=== PATIENT | female | born 1930 | race Caucasian/White ===

== ENCOUNTER 2017-03-22 09:48 | Inpatient (IN) | payer MEDICARE, OTHER ==
[2017-03-22] VITALS (7 sets, daily range): BP systolic 106–133; BP diastolic 56–67; PULSE 72–90; RESP 16–18; TEMP 96.3–98.7; O2SAT 95–99
[~2017-03-22] VITALS: Ht 157.5 cm; Wt 75.0 kg
[~2017-03-22 09:48] MED LIST: ARIC5TAB PO; ATOR20TA42 PO; HYZA50TA2 PO; NITR-29 PO; PROT40TA PO
[2017-03-22] MEDS ORDERED: LOSA50TA2 PO (10:02)
[2017-03-22] MEDS ORDERED: DONE5TAB7 PO (10:02)
[2017-03-22] MEDS ORDERED: PREVAGEN PO (10:02)
[2017-03-22] MEDS ORDERED: NITR1CAP36 PO (10:02)
[2017-03-22] MEDS ORDERED: PANT40TA3 PO (10:02)
[2017-03-22] MEDS ORDERED: SULF1TAB23 PO (10:02)
--- NOTE | 2017-03-22 10:13 | PD ---
HPI Chief Complaint: Pain: Acute or Chronic Time Seen by Provider: 10:02 Travel History International Travel<30 days: No Contact w/Intl Traveler<30days: No Traveled to known affect area: No History of Present Illness HPI The patient was seen and examined in the presence of the nurse. This patient is brought in by paramedics. She complains of arthritic pains in her legs and complains of generalized weakness. She gets around at home with a walker. She fell on her left hip recently. Symptoms severity is moderate. She denies fever or chest pain or shortness of breath. No alleviating factors. Leg pains are exacerbated with movement of her joints. Duration is months to years. PFSH Past Medical History Blood Disorders: No Cancer: No Cardiovascular Problems: Yes High Cholesterol: Yes Diminished Hearing: No Endocrine: No Gastrointestinal Disorders: No GERD: Yes Genitourinary: Yes (HAS BLADDER STIMULATOR 5 YEARS) Hypertension: Yes Immune Disorder: No Implanted Vascular Access Dvce: Yes Musculoskeletal: Yes (PAIN RIGHT LEG) Neurologic: No Psychiatric: No Reproductive: No Respiratory: No Past Surgical History Body Medical Devices: BLADDER STIMULATOR Gynecologic Surgery: Yes (bladder implant) Tonsillectomy: Yes Other Surgery: Yes Social History Alcohol Use: No Tobacco Use: No Substance Use: No Allergies-Medications (Allergen,Severity, Reaction): Coded Allergies: No Known Allergies (Unverified , 10/16/14) Reported Meds & Prescriptions Reported Meds & Active Scripts Active Reported Nitrofurantoin Macrocrystal 100 Mg Cap 100 Mg PO DAILY Sulfamethoxazole-Trimethoprim 800-160 Mg Tab 1 Tab PO BID Donepezil 5 Mg Tab 5 Mg PO HS [Prevagen] 1 Tab PO DAILY Losartan-Hydrochlorothiazide 50-12.5 Mg Tab 1 Tab PO DAILY Pantoprazole (Pantoprazole Sodium) 40 Mg Tab 40 Mg PO DAILY Review of Systems General / Constitutional: No: Fever Eyes: No: Visual changes HENT: No: Headaches Cardiovascular: No: Chest Pain or Discomfort Respiratory: No: Shortness of Breath Gastrointestinal: No: Abdominal Pain Genitourinary: No: Dysuria Musculoskeletal: Positive: Arthralgias, Weakness, Pain Skin: No Rash Neurologic: Positive: Weakness Psychiatric: No: Depression Endocrine: No: Polydipsia Hematologic/Lymphatic: No: Easy Bruising Physical Exam Narrative GENERAL: Pleasant elderly well-developed patient in no apparent distress. SKIN: Focused skin assessment reveals no rash and nodules. Skin is Warm and dry. HEAD: Atraumatic. Normocephalic. EYES: Pupils equal and round. No scleral icterus. No injection or drainage. ENT: No nasal bleeding or discharge. Mucous membranes pink and moist. NECK: Trachea midline. No JVD. CARDIOVASCULAR: Regular rate and rhythm. No murmur appreciated. RESPIRATORY: No accessory muscle use. Clear to auscultation. Breath sounds equal bilaterally. GASTROINTESTINAL: Abdomen soft, non-tender, nondistended. Hepatic and splenic margins not palpable. MUSCULOSKELETAL: Has arthritis of the lower extremity joints. No clubbing. No cyanosis. No edema. There is some bruising over both shins. There is ecchymosis of the left hip. Both hips have good range of motion. NEUROLOGICAL: Awake and alert. No obvious cranial nerve deficits. Motor grossly within normal limits. Normal speech. PSYCHIATRIC: Appropriate mood and affect; insight and judgment questionable . Data Data Last Documented VS Vital Signs Date Time Temp Pulse Resp B/P (MAP) Pulse Ox O2 Delivery O2 Flow Rate FiO2 03/22/17 11:00 72 16 106/59 (75) 98 Room Air 03/22/17 09:55 97.6 Orders Orders Iv Access Insert/Monitor (03/22/17 10:09) Complete Blood Count With Diff (03/22/17 10:09) Basic Metabolic Panel (Bmp) (03/22/17 10:09) Urinalysis - C+S If Indicated (03/22/17 10:09) Cath For Specimen (03/22/17 10:09) Thyroid Stimulating Hormone (03/22/17 10:09) Hip, Lat Only W Ap Pelvis (03/22/17 ) Urine Culture (03/22/17 10:30) Comprehensive Metabolic Panel (03/23/17 06:00) Free Thyroxine (T4) (03/23/17 06:00) Hemoglobin (Hgb) A1c (03/23/17 06:00) Magnesium (Mg) (03/23/17 06:00) Phosphorus (Po4) (03/23/17 06:00) Thyroid Stimulating Hormone (03/23/17 06:00) Complete Blood Count With Diff (03/23/17 06:00) Admit Order (Ed Use Only) (03/22/17 12:45) Labs Laboratory Tests Test 03/22/17 10:10 03/22/17 10:30 White Blood Count 7.6 TH/MM3 Red Blood Count 3.99 MIL/MM3 Hemoglobin 11.9 GM/DL Hematocrit 34.6 % Mean Corpuscular Volume 86.5 FL Mean Corpuscular Hemoglobin 29.8 PG Mean Corpuscular Hemoglobin Concent 34.5 % Red Cell Distribution Width 13.9 % Platelet Count 200 TH/MM3 Mean Platelet Volume 7.8 FL Neutrophils (%) (Auto) 81.7 % Lymphocytes (%) (Auto) 11.8 % Monocytes (%) (Auto) 6.1 % Eosinophils (%) (Auto) 0.3 % Basophils (%) (Auto) 0.1 % Neutrophils # (Auto) 6.2 TH/MM3 Lymphocytes # (Auto) 0.9 TH/MM3 Monocytes # (Auto) 0.5 TH/MM3 Eosinophils # (Auto) 0.0 TH/MM3 Basophils # (Auto) 0.0 TH/MM3 CBC Comment DIFF FINAL Differential Comment Blood Urea Nitrogen 34 MG/DL Creatinine 1.47 MG/DL Random Glucose 129 MG/DL Calcium Level 9.5 MG/DL Sodium Level 127 MEQ/L Potassium Level 3.6 MEQ/L Chloride Level 93 MEQ/L Carbon Dioxide Level 25.1 MEQ/L Anion Gap 9 MEQ/L Estimat Glomerular Filtration Rate 34 ML/MIN Thyroid Stimulating Hormone 3rd Gen 2.300 uIU/ML Urine Color YELLOW Urine Turbidity CLEAR Urine pH 5.5 Urine Specific [place] 1.017 Urine Protein TRACE mg/dL Urine Glucose (UA) NEG mg/dL Urine Ketones TRACE mg/dL Urine Occult Blood NEG Urine Nitrite NEG Urine Bilirubin NEG Urine Urobilinogen LESS THAN 2.0 MG/DL Urine Leukocyte Esterase TRACE Urine RBC 2 /hpf Urine WBC 1 /hpf Urine Bacteria RARE /hpf Urine Hyaline Casts 3 /lpf Urine Mucus FEW /lpf Microscopic Urinalysis Comment CATH-CULTURE IND MDM Medical Decision Making Medical Screen Exam Complete: Yes Emergency Medical Condition: Yes Medical Record Reviewed: Yes Differential Diagnosis Electrolyte abnormality, UTI, arthritis, hip fracture Narrative Course I have reviewed the patient's electronic medical record. Has history of hyponatremia but not as bad as this. IV placed CBC is normal Metabolic profile shows hyponatremia of 127 with some renal insufficiency Catheterized urine will be cultured but not overly suspicious for infection I reviewed her pelvis x-ray negative for fracture I reviewed her left hip x-ray negative for fracture We tried and with this patient and that was not feasible. She is very unsteady and will likely fall She'll be at risk to break a hip or have head injury Given her hyponatremia and generalized weakness and inability to ambulate and the fact that she lives alone and she definitely will require admission and likely placement. I reviewed with the hospitalist Diagnosis Primary Impression: Hyponatremia Additional Impressions: Generalized weakness Inability to ambulate due to multiple joints Admitting Information Admitting Physician Requests: Admit Epi Jiang MD Mar 22, 2017 10:13
[2017-03-22 10:23] LABS: AUTOMATED NEUTROPHIL # 6.2 TH/MM3 (1.8-7.7); BASOPHIL % 0.1 % (0.0-2.0); EOSINOPHIL % 0.3 % (0.0-4.0); HEMATOCRIT 34.6 % (35.0-46.0); HEMOGLOBIN 11.9 GM/DL (11.6-15.3); LYMPH % 11.8 % (9.0-44.0); LYMPHOCYTE # 0.9 TH/MM3 (1.0-4.8); MEAN CELL VOLUME 86.5 FL (80.0-100.0); MEAN CORPUSCULAR HEMOGLOBIN 29.8 PG (27.0-34.0); MEAN CORPUSCULAR HGB CONC 34.5 % (32.0-36.0); MEAN PLATELET VOLUME 7.8 FL (7.0-11.0); MONO % 6.1 % (0.0-8.0); MONOCYTE # 0.5 TH/MM3 (0-0.9); NEUT % 81.7 % (16.0-70.0); PLATELET COUNT 200 TH/MM3 (150-450); RED BLOOD COUNT 3.99 MIL/MM3 (4.00-5.30); RED CELL DISTRIBUTION WIDTH 13.9 % (11.6-17.2); WHITE BLOOD COUNT 7.6 TH/MM3 (4.0-11.0)
[2017-03-22 10:43] LABS: BICARBONATE 25.1 MEQ/L (21.0-32.0); CALCIUM 9.5 MG/DL (8.5-10.1); CREATININE 1.47 MG/DL (0.50-1.00)
--- NOTE | 2017-03-22 10:50 | RADRPT ---
EXAM DATE/TIME: 03/22/2017 10:21 [place] COMPARISON: No previous studies available for comparison. INDICATIONS : Left hip pain. Recent fall on left hip. MEDICAL HISTORY : Hypertension. SURGICAL HISTORY : Bladder stimulator. ENCOUNTER: Initial ACUITY: >1 year PAIN SCORE: 5/10 LOCATION: Left hip. FINDINGS: No acute fracture or dislocation is noted. Mild degenerative changes are noted involving the hip join ts bilaterally. Degenerative changes and scoliosis of the lower lumbar spine are noted. Spinal stimul ator device is noted. CONCLUSION: 1. No acute fracture or dislocation. 2. Degenerative changes and scoliosis of lower lumbar spine. 3. Mild degenerative changes involving the hip joints bilaterally. Alexander Maddox MD on March 22, 2017 at 10:46 Board Certified Radiologist. This report was verified electronically.
[2017-03-22 10:51] LABS: BACTERIA, URINE RARE /hpf; BILIRUBIN, URINE NEG (NEG); BLOOD, URINE NEG (NEG); GLUCOSE,URINE NEG (NEG); HYALINE CAST, URINE 3 /lpf (RARE); KETONE, URINE TRACE mg/dL (NEG); MUCUS URINE FEW /lpf (OCC); NITRITE,URINE NEG (NEG); PH, URINE 5.5 (5.0-8.5); URINE COLOR YELLOW (YELLW/STRAW); URINE LEUKOCYTE ESTERASE TRACE (NEG)
[2017-03-22] MEDS ORDERED: MORPHINE SULFATE 2 MG/ML INJ IV PUSH PRN ×2 (13:00)
[2017-03-22] MEDS ORDERED: oxyCODONE/ACETAMINOPHEN 5 MG/325 MG TAB PO PRN (13:00)
[2017-03-22] MEDS: LOSARTAN 50 MG TAB PO SCH (13:00)
[2017-03-22] MEDS ORDERED: LACTULOSE SYRUP 20 GM/30 ML CUP PO PRN (13:00)
[2017-03-22] MEDS ORDERED: BISACODYL 10 MG SUPP RECTAL PRN (13:00)
[2017-03-22] MEDS ORDERED: METOCLOPRAMIDE HCL 10 MG/2 ML VIAL IV PUSH PRN (13:00)
[2017-03-22] MEDS ORDERED: NALOXONE HCL 0.4 MG/ML AMP IV PUSH PRN (13:00)
[2017-03-22] MEDS ORDERED: ONDANSETRON HCL 4 MG/2 ML VIAL IVP PRN (13:00)
[2017-03-22] MEDS ORDERED: SODIUM CHLORIDE 0.9% FLUSH 10 ML FLUSH IV FLUSH PRN (13:00)
[2017-03-22] MEDS ORDERED: oxyCODONE/ACETAMINOPHEN 10 MG/325 MG TAB PO PRN (13:00)
[2017-03-22] MEDS ORDERED: ACETAMINOPHEN 325 MG TAB PO PRN ×2 (13:00)
[2017-03-22] MEDS: PANTOPRAZOLE SOD 40 MG DELAYED RELEASE TAB PO SCH (13:38)
[2017-03-22] MEDS: SODIUM CHLOR 0.9% 1000 ML INJ 1,000 ML IV SCH (13:38)
--- NOTE | 2017-03-22 13:40 | HHI.HP ---
HPI Service 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 Who lives by herself. Who was brought in by paramedics today to the emergency department here at [facility]. She complains of arthritic pains in her legs and complains of generalized weakness. She states she gets around with a walker at home. She has fallen on her left hip recently. Has pain in the hips denies any fever or chest pain or shortness of breath denies any chills has had leg pains and exacerbated with movement of her joints been going on for months to years. Has generalized weakness and inability to care for herself at this time Review of Systems Constitutional: COMPLAINS OF: Fatigue, Change in appetite, DENIES: Diaphoretic episodes, Fever, Weight gain, Weight loss, Chills, Dizziness Endocrine: DENIES: Abnorml menstrual pattern, Heat/cold intolerance, Polydipsia Eyes: DENIES: Blurred vision, Diplopia, Eye inflammation, Eye pain, Vision loss , Photosensitivity Ears, nose, mouth, throat: DENIES: Tinnitus, Hearing loss, Vertigo, Nasal discharge, Oral lesions Respiratory: DENIES: Apneas, Cough, Snoring, Wheezing, Hemoptysis, Sputum production Cardiovascular: COMPLAINS OF: Lower Extremity Edema, DENIES: Chest pain, Palpitations, Syncope, Dyspnea on Exertion, PND, Orthopnea Gastrointestinal: DENIES: Abdominal pain, Black stools, Bloody stools, Constipation, Diarrhea Genitourinary: DENIES: Abnormal vaginal bleeding, Dysmenorrhea, Dyspareunia, Sexual dysfunction, Vaginal discharge Musculoskeletal: COMPLAINS OF: Joint pain, Back pain, DENIES: Muscle aches, Stiffness, Joint Swelling Integumentary: COMPLAINS OF: Abnormal pigmentation (multiple wounds bilateral lower extremities), DENIES: Pruritus, Rash, Nail changes, Breast masses, Breast skin changes, Nipple discharge Hematologic/lymphatic: COMPLAINS OF: Bruising, DENIES: Lymphadenopathy Immunologic/allergic: DENIES: Eczema, Urticaria Neurologic: COMPLAINS OF: Abnormal gait, Localized weakness, Poor Balance, DENIES: Headache, Paresthesias, Seizures, Speech Problems, Tremor Psychiatric: DENIES: Anxiety, Confusion, Mood changes, Depression, Hallucinations, Agitation, Suicidal Ideation, Homicidal Ideation, Delusions Except as stated in HPI: all other systems reviewed are Neg Past Family Social History Past Medical History Osteoarthritis Hyperlipidemia Hypertension History of hyponatremia GERD Osteoarthritis Pain in right leg Past Surgical History History of a bladder stimulator for 5 years Tonsillectomy Bilateral cataracts Reported Medications Reported Meds & Active Scripts Active Reported Nitrofurantoin Macrocrystal 100 Mg Cap 100 Mg PO DAILY Sulfamethoxazole-Trimethoprim 800-160 Mg Tab 1 Tab PO BID Donepezil 5 Mg Tab 5 Mg PO HS [Prevagen] 1 Tab PO DAILY Losartan-Hydrochlorothiazide 50-12.5 Mg Tab 1 Tab PO DAILY Pantoprazole (Pantoprazole Sodium) 40 Mg Tab 40 Mg PO DAILY Allergies: Coded Allergies: No Known Allergies (Unverified Allergy, Unknown, 03/22/17) Active Ordered Medications Current Medications Donepezil HCl (Aricept) 5 mg HS PO ; Start 03/22/17 at 21:00 Pantoprazole Sodium (Protonix) 40 mg DAILY PO ; Start 03/22/17 at 13:00 Hydrochlorothiazide (Microzide) 12.5 mg DAILY PO ; Start 03/23/17 at 09:00; Stop 03/23/17 at 09:00; Status DC Non-Formulary Medication 1 tab DAILY PO ; Start 03/23/17 at 09:00; Stop 03/23/17 at 09:00; Status DC Losartan Potassium (Cozaar) 50 mg DAILY PO ; Start 03/22/17 at 13:00 Sodium Chloride 1,000 ml @ 83 mls/hr Q12H3M IV ; Start 03/22/17 at 12:49 Sodium Chloride (NS Flush) 2 ml UNSCH PRN IV FLUSH FLUSH AFTER USING IV ACCESS ; Start 03/22/17 at 13:00 Sodium Chloride (NS Flush) 2 ml BID IV FLUSH ; Start 03/22/17 at 21:00 Acetaminophen (Tylenol) 650 mg Q4H PRN PO TEMP > 100.4; Start 03/22/17 at 13:00 Ondansetron HCl (Zofran Inj) 4 mg Q6H PRN IVP NAUSEA OR VOMITING; Start at 13:00 Metoclopramide HCl (Reglan Inj) 5 mg Q6HR PRN IV PUSH NAUSEA OR VOMITING; Start 03/22/17 at 13:00 Heparin Sodium (Porcine) (Heparin Inj) 5,000 units Q12HR SQ ; Start 03/22/17 at 21:00 Acetaminophen (Tylenol) 650 mg Q6HR PRN PO PAIN SCALE 1 TO 2; Start 03/22/17 at 13:00 Oxycodone/ Acetaminophen (Percocet 5-325 Mg) 1 tab Q6H PRN PO PAIN SCALE 3 TO 5; Start 03/22/17 at 13:00 Oxycodone/ Acetaminophen (Percocet 10-325 Mg) 1 tab Q6H PRN PO PAIN SCALE 6 TO 10; Start 03/22/17 at 13:00 Morphine Sulfate (Morphine Inj) 2 mg Q3H PRN IV PUSH Pain 3-5; if unable to take PO; Start 03/22/17 at 13:00 Morphine Sulfate (Morphine Inj) 4 mg Q3H PRN IV PUSH Pain 6-10;if unable to take PO; Start 03/22/17 at 13:00 Naloxone HCl (Narcan Inj) 0.4 mg UNSCH PRN IV PUSH SEE LABEL COMMENTS; Start at 13:00 Senna/Docusate Sodium (Fr[place]ka-Colace) 1 tab BID PO ; Start 03/22/17 at 21:00 Magnesium Hydroxide (Milk Of Magnesia Liq) 30 ml Q12HR PRN PO Mild constipation ; Start 03/22/17 at 14:00 Sennosides (Senokot) 17.2 mg Q12HR PRN PO Moderate constipation; Start 03/22/17 at 21:00 Bisacodyl (Dulcolax Supp) 10 mg DAILY PRN RECTAL SEVERE CONSITIPATION; Start at 13:00 Lactulose (Lactulose Liq) 30 ml DAILY PRN PO SEVERE CONSITIPATION; Start at 13:00 Sodium Chloride (Sodium Chloride) 1 gm TID PO ; Start 03/22/17 at 13:00 Losartan Potassium (Cozaar) 50 mg DAILY PO ; Start 03/23/17 at 09:00; Stop at 09:00; Status DC Family History Hypertension Arthritis Social History Currently lives alone Her lives in a snf facility for the past 2 years Denies any tobacco alcohol or illicits Physical Exam Vital Signs Vital Signs Date Time Temp Pulse Resp B/P (MAP) Pulse Ox O2 Delivery O2 Flow Rate FiO2 03/22/17 11:00 72 16 106/59 (75) 98 Room Air 03/22/17 09:57 83 17 03/22/17 09:55 97.6 85 17 116/66 (83) 95 Physical Exam GENERAL: This is a well-nourished, well-developed patient, in no apparent distress. SKIN: No rashes, ecchymoses or lesions. Cool and dry. Multiple areas of ecchymosis and bruising bilateral lower extremities as well as multiple lower extremity wounds HEAD: Atraumatic. Normocephalic. No temporal or scalp tenderness. EYES: Pupils equal round and reactive. Extraocular motions intact. No scleral icterus. No injection or drainage. ENT: Nose without bleeding, purulent drainage or septal hematoma. Throat without erythema, tonsillar hypertrophy or exudate. Uvula midline. Airway patent. NECK: Trachea midline. No JVD or lymphadenopathy. Supple, nontender, no meningeal signs. CARDIOVASCULAR: Regular rate and rhythm without murmurs, gallops, or rubs. S1 and S2 no S3 or S4 RESPIRATORY: Clear to auscultation. Breath sounds equal bilaterally. No wheezes , rales, or rhonchi. GASTROINTESTINAL: Abdomen soft, non-tender, nondistended. No hepato-splenomegaly , or palpable masses. No guarding. MUSCULOSKELETAL: Extremities without clubbing, cyanosis, or edema. No joint tenderness, effusion, or edema noted. No calf tenderness. Negative Homans sign bilaterally. Arthritis bilateral lower extremities there is edema +1-2 lower extremities bruising over both shins. Ecchymosis over left hip with good range of motion NEUROLOGICAL: Awake and alert. Cranial nerves II through XII intact. Motor and sensory grossly within normal limits. 4 out of 5 muscle strength in all muscle groups. Normal speech. Appropriate mood and affect; insight and judgment are questionable Laboratory Laboratory Tests Test 03/22/17 10:10 03/22/17 10:30 White Blood Count 7.6 Red Blood Count 3.99 Hemoglobin 11.9 Hematocrit 34.6 Mean Corpuscular Volume 86.5 Mean Corpuscular Hemoglobin 29.8 Mean Corpuscular Hemoglobin Concent 34.5 Red Cell Distribution Width 13.9 Platelet Count 200 Mean Platelet Volume 7.8 Neutrophils (%) (Auto) 81.7 Lymphocytes (%) (Auto) 11.8 Monocytes (%) (Auto) 6.1 Eosinophils (%) (Auto) 0.3 Basophils (%) (Auto) 0.1 Neutrophils # (Auto) 6.2 Lymphocytes # (Auto) 0.9 Monocytes # (Auto) 0.5 Eosinophils # (Auto) 0.0 Basophils # (Auto) 0.0 CBC Comment DIFF FINAL Differential Comment Blood Urea Nitrogen 34 Creatinine 1.47 Random Glucose 129 Calcium Level 9.5 Sodium Level 127 Potassium Level 3.6 Chloride Level 93 Carbon Dioxide Level 25.1 Anion Gap 9 Estimat Glomerular Filtration Rate 34 Thyroid Stimulating Hormone 3rd Gen 2.300 Urine Color YELLOW Urine Turbidity CLEAR Urine pH 5.5 Urine Specific [place] 1.017 Urine Protein TRACE Urine Glucose (UA) NEG Urine Ketones TRACE Urine Occult Blood NEG Urine Nitrite NEG Urine Bilirubin NEG Urine Urobilinogen LESS THAN 2.0 Urine Leukocyte Esterase TRACE Urine RBC 2 Urine WBC 1 Urine Bacteria RARE Urine Hyaline Casts 3 Urine Mucus FEW Microscopic Urinalysis Comment CATH-CULTURE IND Date/Time Source Procedure Growth Status 03/22/17 10:30 Urine Catheterized Urine Urine Culture Pending Received Result Diagram: 03/22/17 1010 03/22/17 1010 Imaging Last Impressions Hip and Pelvis X-Ray 03/22/17 0000 Signed Impressions: Service Date/Time: Wednesday, March 22, 2017 10:21 - CONCLUSION: 1. No acute fracture or dislocation. 2. Degenerative changes and scoliosis of lower lumbar spine. 3. Mild degenerative changes involving the hip joints bilaterally. MD Uriel De La Rosa VTE Risk Assessment Caprini VTE Risk Assessment: Mod/High Risk (score >= 2) Caprini Risk Assessment Model Point Value = 1 Point Value = 2 Point Value = 3 Point Value = 5 Age 41-60 Minor surgery BMI > 25 kg/m2 Swollen legs Varicose veins or History of unexplained or recurrent spontaneous Oral contraceptives or hormone replacement Sepsis (< 1 month) Serious lung disease, including pneumonia (< 1 month) Abnormal pulmonary function Acute myocardial infarction Congestive heart failure (< 1 month) History of inflammatory bowel disease Medical patient at bed rest Age 61-74 Arthroscopic surgery Major open surgery (> 45 min) Laparoscopic surgery (> 45 min) Malignancy Confined to bed (> 72 hours) Immobilizing plaster cast Central venous access Age >= 75 History of VTE Family history of VTE Factor V Leiden Prothrombin [id number] Lupus anticoagulant Anticardiolipin antibodies Elevated serum homocysteine Heparin-induced thrombocytopenia Other congenital or acquired thrombophilia Stroke (< 1 month) Elective arthroplasty Hip, pelvis, or leg fracture Acute spinal cord injury (< 1 month) Prophylaxis Regimen Total Risk Factor Score Risk Level Prophylaxis Regimen 0-1 Low Early ambulation 2 Moderate Order ONE of the following: *Sequential Compression Device (SCD) *Heparin 5000 units SQ BID 3-4 Higher Order ONE of the following medications: *Heparin 5000 units SQ TID *Enoxaparin/Lovenox 40 mg SQ daily (WT < 150 kg, CrCl > 30 mL/min) *Enoxaparin/Lovenox 30 mg SQ daily (WT < 150 kg, CrCl > 10-29 mL/min) *Enoxaparin/Lovenox 30 mg SQ BID (WT < 150 kg, CrCl > 30 mL/min) AND/OR *Sequential Compression Device (SCD) 5 or more Highest Order ONE of the following medications: *Heparin 5000 units SQ TID (Preferred with Epidurals) *Enoxaparin/Lovenox 40 mg SQ daily (WT < 150 kg, CrCl > 30 mL/min) *Enoxaparin/Lovenox 30 mg SQ daily (WT < 150 kg, CrCl > 10-29 mL/min) *Enoxaparin/Lovenox 30 mg SQ BID (WT < 150 kg, CrCl > 30 mL/min) AND *Sequential Compression Device (SCD) Assessment and Plan Problem List: (1) Generalized weakness ICD Code: R53.1 - Weakness Status: Acute (2) Hyponatremia ICD Code: E87.1 - Hypo-osmolality and hyponatremia Status: Acute (3) Inability to ambulate due to multiple joints ICD Code: R26.2 - Difficulty in walking, not elsewhere classified Status: Acute (4) 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 We'll start on fluids and sodium chloride tablets 1 g 3 times a day Will stop her hydrochlorothiazide A.m. labs Hypertension adjust her medications switched to losartan 50 mg daily hold the hydrochlorothiazide monitor Generalized weakness continue with physical therapy and occupational therapy to evaluate and treat Inability to ambulate due to multiple joint issues and pain --physical therapy and occupational therapy to evaluate and treat Hyperlipidemia resume home medications Multiple falls will continue with physical therapy and occupational therapy SNF placement probably GERD continue PPI DVT prophylaxis GI prophylaxis with PPI Physical therapy and occupational therapy to eval and treat Adjust medications regarding hyponatremia Will more likely need snf facility for aggressive physical therapy and occupational therapy since she lives alone and has osteoarthritis and multiple falls recently Code Status Full code Discussed Condition With Patient and RN and emergency room physician Physician Certification 2 Midnight Certification Type: Admission for Inpatient Services Order for Inpatient Services The services are ordered in accordance with Medicare regulations or non- Medicare payer requirements, as applicable. In the case of services not specified as inpatient-only, they are appropriately provided as inpatient services in accordance with the 2-midnight benchmark. Estimated LOS (days): 3 days is the estimated time the patient will need to remain in the hospital, assuming treatment plan goals are met and no additional complications. Post-Hospital Plan: [facility] Mack Valle DO Mar 22, 2017 13:40
[2017-03-22] MEDS: SODIUM CHLORIDE 1 GRAM TAB PO SCH ×2 (13:50→17:55)
[2017-03-22] MEDS ORDERED: MAGNESIUM HYDROXIDE SUSP 30 ML CUP PO PRN (14:00)
[2017-03-22] MEDS: DONEPEZIL HCL 5 MG TAB PO SCH (19:48)
[2017-03-22] MEDS: SODIUM CHLORIDE 0.9% FLUSH 10 ML FLUSH IV FLUSH SCH (19:48)
[2017-03-22] MEDS: DOCUSATE SODIUM 50 MG/SENNA 8.6 MG TAB PO SCH (19:48)
[2017-03-22] MEDS: HEPARIN SODIUM - SQ 10,000 UNITS/ML VIAL SQ SCH (19:49)
[2017-03-22] MEDS ORDERED: SENNOSIDES 8.6 MG TAB PO PRN (21:00)
[2017-03-23] VITALS (9 sets, daily range): BP systolic 129–164; BP diastolic 70–81; PULSE 64–87; RESP 16–18; TEMP 96.1–97; O2SAT 95–100
[2017-03-23] MEDS: SODIUM CHLOR 0.9% 1000 ML INJ 1,000 ML IV SCH (00:52)
[2017-03-23 05:33] LABS: AUTOMATED NEUTROPHIL # 3.4 TH/MM3 (1.8-7.7); BASOPHIL % 0.7 % (0.0-2.0); EOSINOPHIL # 0.1 TH/MM3 (0-0.4); EOSINOPHIL % 1.6 % (0.0-4.0); HEMATOCRIT 31.2 % (35.0-46.0); LYMPH % 25.2 % (9.0-44.0); LYMPHOCYTE # 1.3 TH/MM3 (1.0-4.8); MEAN CELL VOLUME 87.2 FL (80.0-100.0); MEAN CORPUSCULAR HEMOGLOBIN 30.7 PG (27.0-34.0); MEAN CORPUSCULAR HGB CONC 35.2 % (32.0-36.0); MEAN PLATELET VOLUME 8.1 FL (7.0-11.0); MONO % 9.4 % (0.0-8.0); MONOCYTE # 0.5 TH/MM3 (0-0.9); NEUT % 63.1 % (16.0-70.0); PLATELET COUNT 180 TH/MM3 (150-450); RED BLOOD COUNT 3.57 MIL/MM3 (4.00-5.30); RED CELL DISTRIBUTION WIDTH 13.7 % (11.6-17.2); WHITE BLOOD COUNT 5.3 TH/MM3 (4.0-11.0)
[2017-03-23 06:15] LABS: ALBUMIN 3.2 GM/DL (3.4-5.0); ALKALINE PHOSPHATASE 53 U/L (45-117); ALT (GPT) 26 U/L (10-53); AST (GOT) 31 U/L (15-37); BICARBONATE 26.1 MEQ/L (21.0-32.0); BLOOD UREA NITROGEN 19 MG/DL (7-18); CALCIUM 8.8 MG/DL (8.5-10.1); CHLORIDE 96 MEQ/L (98-107); CREATININE 0.82 MG/DL (0.50-1.00); FREE T4 1.34 NG/DL (0.76-1.46); GLOMERULAR FILTRATION RATE 66 ML/MIN (>89); GLUCOSE,RANDOM 102 MG/DL (74-106); MAGNESIUM 1.6 MG/DL (1.5-2.5); PHOSPHORUS 1.9 MG/DL (2.5-4.9); SODIUM (NA) 131 MEQ/L (136-145); TOTAL BILIRUBIN ADULT 1.1 MG/DL (0.2-1.0); TOTAL PROTEIN 7.4 GM/DL (6.4-8.2)
[2017-03-23] MEDS: HEPARIN SODIUM - SQ 10,000 UNITS/ML VIAL SQ SCH ×2 (08:40→21:33)
[2017-03-23] MEDS: LOSARTAN 50 MG TAB PO SCH ×2 (08:40→21:33)
[2017-03-23] MEDS: SODIUM CHLORIDE 1 GRAM TAB PO SCH ×3 (08:40→18:27)
[2017-03-23] MEDS: PANTOPRAZOLE SOD 40 MG DELAYED RELEASE TAB PO SCH (08:40)
[2017-03-23] MEDS: SODIUM CHLORIDE 0.9% FLUSH 10 ML FLUSH IV FLUSH SCH ×2 (08:41→21:33)
[2017-03-23] MEDS: DOCUSATE SODIUM 50 MG/SENNA 8.6 MG TAB PO SCH ×2 (08:41→21:33)
[2017-03-23] MEDS ORDERED: PREVAGEN PO SCH (09:00)
[2017-03-23] MEDS ORDERED: HYDROCHLOROTHIAZIDE 12.5 MG CAP PO SCH (09:00)
[2017-03-23] MEDS ORDERED: LOSARTAN 50 MG TAB PO SCH (09:00)
[2017-03-23 10:03] LABS: HEMOGLOBIN A1C 5.4 % (4.3-6.0)
--- NOTE | 2017-03-23 11:23 | HHI.PR ---
Subjective Remarks Follow-up hyponatremia/generalized weakness/recurrent fall 03/23/17-patient seen and examined, sodium improved to 131 and no reported fall overnight. Stable. Objective Vitals Vital Signs Date Time Temp Pulse Resp B/P (MAP) Pulse Ox O2 Delivery O2 Flow Rate FiO2 03/23/17 10:10 98 03/23/17 08:00 96.1 76 17 155/76 (102) 98 03/23/17 04:20 96.4 86 18 150/76 (100) 95 03/22/17 23:46 80 03/22/17 23:23 98.7 84 18 120/65 (83) 97 03/22/17 20:00 90 03/22/17 19:40 96.7 81 18 121/56 (77) 97 03/22/17 14:15 96.3 80 18 133/67 (89) 99 03/22/17 13:50 I/O 03/22/17 03/22/17 03/22/17 03/23/17 03/23/17 03/23/17 07:00 15:00 23:00 07:00 15:00 23:00 Intake Total 360 ml 480 ml Balance 360 ml 480 ml Intake Oral 360 ml 480 ml # Voids 3 3 # Bowel Movements 0 0 Result Diagram: 03/23/17 0452 03/23/17 0452 Imaging Last Impressions Hip and Pelvis X-Ray 03/22/17 0000 Signed Impressions: Service Date/Time: Wednesday, March 22, 2017 10:21 - CONCLUSION: 1. No acute fracture or dislocation. 2. Degenerative changes and scoliosis of lower lumbar spine. 3. Mild degenerative changes involving the hip joints bilaterally. Alexander Maddox MD Objective Remarks GENERAL: NAD SKIN: Warm and dry. HEAD: Normocephalic. EYES: No scleral icterus. No injection or drainage. NECK: Supple, trachea midline. No JVD or lymphadenopathy. CARDIOVASCULAR: Regular rate and rhythm without murmurs, gallops, or rubs. RESPIRATORY: Breath sounds equal bilaterally. No accessory muscle use. GASTROINTESTINAL: Abdomen soft, non-tender, nondistended. MUSCULOSKELETAL: No cyanosis, or edema. BACK: Nontender without obvious deformity. No CVA tenderness. 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 Status: Acute Assessment and Plan 86-year-old female with Hyponatremia: Sodium up to 131 Hypertension Increase Cozaar to 50 mg BID D/c HCTZ Generalized weakness continue with physical therapy and occupational therapy to evaluate and treat Inability to ambulate due to multiple joint issues and pain --physical therapy and occupational therapy to evaluate and treat Hyperlipidemia resume home medications Multiple falls will continue with physical therapy and occupational therapy SNF placement probably GERD continue PPI DVT prophylaxis GI prophylaxis with PPI Physical therapy and occupational therapy to eval and treat Discharge Planning Discharge patient to SNF Condition on discharge: Improved Regular Diet as tolerated Ad Nhi activity Rx written:see EMR Follow-up with primary care physician in 1 week Kem Gomez MD Mar 23, 2017 11:23
[2017-03-23] MEDS ORDERED: COZA50TA PO (11:45)
[2017-03-23] MEDS: DONEPEZIL HCL 5 MG TAB PO SCH (21:33)
[2017-03-24] VITALS (7 sets, daily range): BP systolic 121–170; BP diastolic 66–86; PULSE 76–88; RESP 17–18; TEMP 95.9–98; O2SAT 97–99
[2017-03-24] MEDS: DOCUSATE SODIUM 50 MG/SENNA 8.6 MG TAB PO SCH ×2 (09:19→21:51)
[2017-03-24] MEDS: SODIUM CHLORIDE 0.9% FLUSH 10 ML FLUSH IV FLUSH SCH ×2 (09:19→21:50)
[2017-03-24] MEDS: SODIUM CHLORIDE 1 GRAM TAB PO SCH ×3 (09:19→17:16)
[2017-03-24] MEDS: PANTOPRAZOLE SOD 40 MG DELAYED RELEASE TAB PO SCH (09:19)
[2017-03-24] MEDS: HEPARIN SODIUM - SQ 10,000 UNITS/ML VIAL SQ SCH ×2 (09:19→21:51)
[2017-03-24] MEDS: LOSARTAN 50 MG TAB PO SCH ×2 (09:19→21:53)
--- NOTE | 2017-03-24 10:53 | HHI.PR ---
Subjective Remarks Follow-up hyponatremia/generalized weakness/recurrent fall 03/23/17-patient seen and examined, sodium improved to 131 and no reported fall overnight. Stable. 03/24/17-patient seen and examined, she was up ambulating with assistance of PT. No acute event overnight. Afebrile. Objective Vitals Vital Signs Date Time Temp Pulse Resp B/P (MAP) Pulse Ox O2 Delivery O2 Flow Rate FiO2 03/24/17 08:00 95.9 76 17 170/86 (114) 97 03/24/17 05:25 96.8 84 18 157/86 (109) 99 03/24/17 01:30 97.0 82 18 159/74 (102) 97 03/23/17 23:53 64 03/23/17 20:10 97.0 87 18 155/81 (105) 100 03/23/17 19:46 83 03/23/17 16:00 96.6 83 17 164/75 (104) 99 03/23/17 12:00 96.9 78 16 129/70 (89) 98 I/O 03/23/17 03/23/17 03/23/17 03/24/17 03/24/17 03/24/17 06:59 14:59 22:59 06:59 14:59 22:59 Intake Total 480 ml 500 ml 120 ml 120 ml Balance 480 ml 500 ml 120 ml 120 ml Intake Oral 480 ml 500 ml 120 ml 120 ml # Voids 3 2 5 3 # Bowel Movements 0 1 0 0 Result Diagram: 03/23/17 0452 03/23/17 045 Objective Remarks GENERAL: NAD SKIN: Warm and dry. HEAD: Normocephalic. EYES: No scleral icterus. No injection or drainage. NECK: Supple, trachea midline. No JVD or lymphadenopathy. CARDIOVASCULAR: Regular rate and rhythm without murmurs, gallops, or rubs. RESPIRATORY: Breath sounds equal bilaterally. No accessory muscle use. GASTROINTESTINAL: Abdomen soft, non-tender, nondistended. MUSCULOSKELETAL: No cyanosis, or edema. BACK: Nontender without obvious deformity. No CVA tenderness. 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 Patient needs a total of 3 nights stay prior to discharge to sniff Inability to ambulate due to multiple joint issues and pain --physical therapy and occupational therapy to evaluate and treat Hyperlipidemia resume home medications Multiple falls will continue with physical therapy and occupational therapy SNF placement probably GERD continue PPI DVT prophylaxis GI prophylaxis with PPI Physical therapy and occupational therapy to eval and treat Discharge Planning Discharge patient to SNF Condition on discharge: Improved Regular Diet as tolerated Ad Nhi activity Rx written:see EMR Follow-up with primary care physician in 1 week Kem Gomez MD Mar 24, 2017 10:53
[2017-03-24] MEDS: DONEPEZIL HCL 5 MG TAB PO SCH (21:50)
[2017-03-25] VITALS (7 sets, daily range): BP systolic 140–166; BP diastolic 76–85; PULSE 73–91; RESP 17–18; TEMP 96.3–97.5; O2SAT 95–98
[2017-03-25 07:08] LABS: BICARBONATE 25.6 MEQ/L (21.0-32.0); CALCIUM 8.8 MG/DL (8.5-10.1); CREATININE 0.62 MG/DL (0.50-1.00)
[2017-03-25] MEDS: DOCUSATE SODIUM 50 MG/SENNA 8.6 MG TAB PO SCH (09:00)
[2017-03-25] MEDS: LOSARTAN 50 MG TAB PO SCH (09:14)
[2017-03-25] MEDS: PANTOPRAZOLE SOD 40 MG DELAYED RELEASE TAB PO SCH (09:14)
[2017-03-25] MEDS: HEPARIN SODIUM - SQ 10,000 UNITS/ML VIAL SQ SCH (09:14)
[2017-03-25] MEDS: SODIUM CHLORIDE 0.9% FLUSH 10 ML FLUSH IV FLUSH SCH (09:15)
[2017-03-25] MEDS ORDERED: OXYC1TAB63 PO (12:55)
--- NOTE | 2017-03-25 13:22 | HHI.PR ---
Subjective Remarks Follow-up hyponatremia/generalized weakness/recurrent fall 03/23/17-patient seen and examined, sodium improved to 131 and no reported fall overnight. Stable. 03/24/17-patient seen and examined, she was up ambulating with assistance of PT. No acute event overnight. Afebrile. 03/25/17-patient seen and examined, states she had one episode of emesis this a.m. however stable now. No acute event overnight Objective Vitals Vital Signs Date Time Temp Pulse Resp B/P (MAP) Pulse Ox O2 Delivery O2 Flow Rate FiO2 03/25/17 12:00 96.9 76 18 140/77 (98) 98 03/25/17 08:00 96.3 79 17 159/85 (109) 98 03/25/17 04:55 96.9 91 17 166/79 (108) 97 03/25/17 04:23 73 03/25/17 00:14 91 03/25/17 00:10 97.5 89 17 147/76 (99) 97 03/24/17 20:04 85 03/24/17 19:50 98.0 85 17 121/71 (88) 97 03/24/17 16:00 97.7 88 17 160/78 (105) 99 I/O 03/24/17 03/24/17 03/24/17 03/25/17 03/25/17 03/25/17 06:59 14:59 22:59 06:59 14:59 22:59 Intake Total 120 ml 480 ml 240 ml 120 ml Balance 120 ml 480 ml 240 ml 120 ml Intake Oral 120 ml 480 ml 240 ml 120 ml # Voids 3 3 2 3 # Bowel Movements 0 3 0 0 Result Diagram: 03/23/17 0452 03/25/17 0610 Imaging Last Impressions Hip and Pelvis X-Ray 03/22/17 0000 Signed Impressions: Service Date/Time: Wednesday, March 22, 2017 10:21 - CONCLUSION: 1. No acute fracture or dislocation. 2. Degenerative changes and scoliosis of lower lumbar spine. 3. Mild degenerative changes involving the hip joints bilaterally. Alexander aMddox MD Objective Remarks GENERAL: NAD SKIN: Warm and dry. HEAD: Normocephalic. EYES: No scleral icterus. No injection or drainage. NECK: Supple, trachea midline. No JVD or lymphadenopathy. CARDIOVASCULAR: Regular rate and rhythm without murmurs, gallops, or rubs. RESPIRATORY: Breath sounds equal bilaterally. No accessory muscle use. GASTROINTESTINAL: Abdomen soft, non-tender, nondistended. MUSCULOSKELETAL: No cyanosis, or edema. BACK: Nontender without obvious deformity. No CVA tenderness. 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 Inability to ambulate due to multiple joint issues and pain --physical therapy and occupational therapy to evaluate and treat Hyperlipidemia: continue home medications Multiple falls will continue with physical therapy and occupational therapy SNF placement probably GERD continue PPI DVT prophylaxis GI prophylaxis with PPI Physical therapy and occupational therapy to eval and treat Kem Gomez MD Mar 25, 2017 13:22
--- NOTE | 2017-03-25 13:23 | HHI.DS ---
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 Who lives by herself. Who was brought in by paramedics today to the emergency department here at [facility]. She complains of arthritic pains in her legs and complains of generalized weakness. She states she gets around with a walker at home. She has fallen on her left hip recently. Has pain in the hips denies any fever or chest pain or shortness of breath denies any chills has had leg pains and exacerbated with movement of her joints been going on for months to years. Has generalized weakness and inability to care for herself at this time CBC/BMP: 03/23/17 0452 03/25/17 0610 Significant Findings Laboratory Tests Test 03/23/17 04:52 03/25/17 06:10 Red Blood Count 3.57 MIL/MM3 (4.00-5.30) Hemoglobin 11.0 GM/DL (11.6-15.3) Hematocrit 31.2 % (35.0-46.0) Monocytes (%) (Auto) 9.4 % (0.0-8.0) Blood Urea Nitrogen 19 MG/DL (7-18) Albumin 3.2 GM/DL (3.4-5.0) Phosphorus Level 1.9 MG/DL (2.5-4.9) Total Bilirubin 1.1 MG/DL (0.2-1.0) Sodium Level 131 MEQ/L (136-145) 130 MEQ/L (136-145) Chloride Level 96 MEQ/L (98-107) 96 MEQ/L (98-107) Estimat Glomerular Filtration Rate 66 ML/MIN (>89) Random Glucose 110 MG/DL (74-106) Imaging Last Impressions Hip and Pelvis X-Ray 03/22/17 0000 Signed Impressions: Service Date/Time: Wednesday, March 22, 2017 10:21 - CONCLUSION: 1. No acute fracture or dislocation. 2. Degenerative changes and scoliosis of lower lumbar spine. 3. Mild degenerative changes involving the hip joints bilaterally. Alexander Maddox MD PE at Discharge GENERAL: NAD SKIN: Warm and dry. HEAD: Normocephalic. EYES: No scleral icterus. No injection or drainage. NECK: Supple, trachea midline. No JVD or lymphadenopathy. CARDIOVASCULAR: Regular rate and rhythm without murmurs, gallops, or rubs. RESPIRATORY: Breath sounds equal bilaterally. No accessory muscle use. GASTROINTESTINAL: Abdomen soft, non-tender, nondistended. MUSCULOSKELETAL: No cyanosis, or edema. BACK: Nontender without obvious deformity. No CVA tenderness. Pt Condition on Discharge: Stable Discharge Disposition: Discharge to SNF Discharge Time: > 30 minutes Discharge Instructions DIET: Follow Instructions for: Heart Healthy Diet Activities you can perform: Regular-No Restrictions Follow up Referrals: PCP Follow-up - 2-3 Days New Medications: Losartan (Cozaar) 50 Mg Tab 50 MG PO Q12HR for Blood Pressure Management, #60 TAB 3 Refills Oxycodone HCl/Acetaminophen (Oxycodone-Acetaminophen 5-325) 5 Mg-325 Mg Tablet 1 TAB PO Q6H PRN for PAIN SCALE 3 TO 5, #4 TAB Continued Medications: Donepezil (Donepezil) 5 Mg Tab 5 MG PO HS for Dementia, #30 TAB 0 Refills Pantoprazole (Pantoprazole) 40 Mg Tab 40 MG PO DAILY for Reflux, #30 TAB 0 Refills [Prevagen] () 1 TAB PO DAILY Discontinued Medications: Losartan-Hydrochlorothiazide (Losartan-Hydrochlorothiazide) 50-12.5 Mg Tab 1 TAB PO DAILY for Blood Pressure Management, #30 TAB 0 Refills Nitrofurantoin Macrocrystal (Nitrofurantoin Macrocrystal) 100 Mg Cap 100 MG PO DAILY for Infection, CAP 0 Refills Sulfamethoxazole-Trimethoprim (Sulfamethoxazole-Trimethoprim) 800-160 Mg Tab 1 TAB PO BID for Infection, TAB 0 Refills Kem Gomez MD Mar 25, 2017 13:23
--- NOTE | 2017-03-25 13:27 | HHI.DS ---
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 Who lives by herself. Who was brought in by paramedics today to the emergency department here at [facility]. She complains of arthritic pains in her legs and complains of generalized weakness. She states she gets around with a walker at home. She has fallen on her left hip recently. Has pain in the hips denies any fever or chest pain or shortness of breath denies any chills has had leg pains and exacerbated with movement of her joints been going on for months to years. Has generalized weakness and inability to care for herself at this time CBC/BMP: 03/23/17 0452 03/25/17 0610 Significant Findings Laboratory Tests Test 03/23/17 04:52 03/25/17 06:10 Red Blood Count 3.57 MIL/MM3 (4.00-5.30) Hemoglobin 11.0 GM/DL (11.6-15.3) Hematocrit 31.2 % (35.0-46.0) Monocytes (%) (Auto) 9.4 % (0.0-8.0) Blood Urea Nitrogen 19 MG/DL (7-18) Albumin 3.2 GM/DL (3.4-5.0) Phosphorus Level 1.9 MG/DL (2.5-4.9) Total Bilirubin 1.1 MG/DL (0.2-1.0) Sodium Level 131 MEQ/L (136-145) 130 MEQ/L (136-145) Chloride Level 96 MEQ/L (98-107) 96 MEQ/L (98-107) Estimat Glomerular Filtration Rate 66 ML/MIN (>89) Random Glucose 110 MG/DL (74-106) Imaging Last Impressions Hip and Pelvis X-Ray 03/22/17 0000 Signed Impressions: Service Date/Time: Wednesday, March 22, 2017 10:21 - CONCLUSION: 1. No acute fracture or dislocation. 2. Degenerative changes and scoliosis of lower lumbar spine. 3. Mild degenerative changes involving the hip joints bilaterally. Alexander Maddox MD PE at Discharge GENERAL: NAD SKIN: Warm and dry. HEAD: Normocephalic. EYES: No scleral icterus. No injection or drainage. NECK: Supple, trachea midline. No JVD or lymphadenopathy. CARDIOVASCULAR: Regular rate and rhythm without murmurs, gallops, or rubs. RESPIRATORY: Breath sounds equal bilaterally. No accessory muscle use. GASTROINTESTINAL: Abdomen soft, non-tender, nondistended. MUSCULOSKELETAL: No cyanosis, or edema. BACK: Nontender without obvious deformity. No CVA tenderness. Hospital Course While in the hospital, patient was treated for: Hyponatremia: Responded well to treatment with salt tablets 130 Chlorothiazide was discontinued Hypertension Cozaar was increased to 50 mg twice a day, while hydrochlorothiazide were discontinued secondary to hyponatremia Generalized weakness: Physical and patient in therapies were consulted and patient participated in full activities Inability to ambulate due to multiple joint issues and pain --Physical and patient in therapies were consulted and patient participated in full activities Hyperlipidemia: continued with home medications Multiple falls:She was placed on fall precaution and Physical and patient in therapies were consulted and patient participated in full activities GERD : Treated with PPI DVT prophylaxis GI prophylaxis with PPI Pt Condition on Discharge: Stable Discharge Disposition: Discharge to SNF Discharge Time: > 30 minutes Discharge Instructions DIET: Follow Instructions for: Heart Healthy Diet Activities you can perform: Regular-No Restrictions Follow up Referrals: PCP Follow-up - 2-3 Days New Medications: Losartan (Cozaar) 50 Mg Tab 50 MG PO Q12HR for Blood Pressure Management, #60 TAB 3 Refills Oxycodone HCl/Acetaminophen (Oxycodone-Acetaminophen 5-325) 5 Mg-325 Mg Tablet 1 TAB PO Q6H PRN for PAIN SCALE 3 TO 5, #4 TAB Continued Medications: Donepezil (Donepezil) 5 Mg Tab 5 MG PO HS for Dementia, #30 TAB 0 Refills Pantoprazole (Pantoprazole) 40 Mg Tab 40 MG PO DAILY for Reflux, #30 TAB 0 Refills [Prevagen] () 1 TAB PO DAILY Discontinued Medications: Losartan-Hydrochlorothiazide (Losartan-Hydrochlorothiazide) 50-12.5 Mg Tab 1 TAB PO DAILY for Blood Pressure Management, #30 TAB 0 Refills Nitrofurantoin Macrocrystal (Nitrofurantoin Macrocrystal) 100 Mg Cap 100 MG PO DAILY for Infection, CAP 0 Refills Sulfamethoxazole-Trimethoprim (Sulfamethoxazole-Trimethoprim) 800-160 Mg Tab 1 TAB PO BID for Infection, TAB 0 Refills Kem Gomez MD Mar 25, 2017 13:27
== END 2017-03-25 18:53 | DRG 641 ==
LOC: NEPC 09:48 → NEDA 12:46 → N06B 14:06
PROVIDERS: ADMIT Hospitalist; ATTEND Hospitalist
DX: E87.1 Hypo-osmolality and hyponatremia (principal); I87.339 Chronic venous hypertension (idiopathic) with ulcer and inflammation of unspecified lower extremity; I10 Essential (primary) hypertension; K21.9 Gastro-esophageal reflux disease without esophagitis; E78.5 Hyperlipidemia, unspecified; M19.90 Unspecified osteoarthritis, unspecified site; R29.6 Repeated falls; S80.12XA Contusion of left lower leg, initial encounter; S80.11XA Contusion of right lower leg, initial encounter
CPT/HCPCS: 73501; 80048; 80053; 81001; 83036; 83735; 84100; 84439; 84443; 85025; 87086; 99285; J1644; J2405; J7030; P9612